=== PATIENT | male | born 1995 | race Asian ===

== ENCOUNTER 2016-12-08 00:51 | Emergency (ER) | payer MEDICAID ==
[2016-12-08 01:22] LABS: BASOPHIL % 0.4 % (0-2); PLATELET COUNT 257 x10^3mcL (130-400); RED CELL DISTRIBUTION WIDTH 13.6 % (11.5-14.5)
[2016-12-08 01:29] LABS: CALCIUM 8.4 mg/dL (8.5-10.1); CARBON DIOXIDE 29.3 mmol/L (21-32); CHLORIDE SERUM 108 mmol/L (98-107); CREATININE SERUM 0.8 mg/dL (0.7-1.3); GFR1 > 60 mL/min; GLUCOSE SERUM 95 mg/dL (74-106); POTASSIUM SERUM 4.1 mmol/L (3.5-5.1); SODIUM SERUM 145 mmol/L (136-145)
[2016-12-08 01:33] LABS: ALBUMIN 3.6 g/dL (3.4-5.0); ALKALINE PHOSPHATASE 110 U/L (46-116); ALT/SGPT 26 U/L (16-63); AMYLASE 78 U/L (25-115); AST/SGOT 18 U/L (15-37); BILIRUBIN TOTAL 0.48 mg/dL (0.20-1.00); LIPASE 109 IU/L (73-393)
[2016-12-08 02:45] VITALS: BP 143/64
== END 2016-12-08 02:45 | disposition home or self-care (01) ==
LOC: ED 00:51
PROVIDERS: Emergency Medicine
DX: R10.13 Epigastric pain (principal); R11.10 Vomiting, unspecified; J45.909 Unspecified asthma, uncomplicated

== ENCOUNTER 2017-03-19 04:10 | Emergency (ER) | payer MEDICAID ==
[2017-03-19 06:02] VITALS: BP 130/80
== END 2017-03-19 06:02 | disposition home or self-care (01) ==
LOC: ED 04:10
DX: L50.0 Allergic urticaria (principal); J45.909 Unspecified asthma, uncomplicated
CPT/HCPCS: J2930; Q0163

== ENCOUNTER 2018-01-18 11:31 | Emergency (ER) | payer MEDICAID ==
[~2018-01-18] VITALS: Ht 182.9 cm; Wt 133.3 kg
[2018-01-18 11:55] VITALS: BP 133/65; Ht 182.9 cm; Wt 133.3 kg
== END 2018-01-18 12:43 | disposition home or self-care (01) ==
LOC: ED 11:31
DX: J06.9 Acute upper respiratory infection, unspecified (principal); J45.909 Unspecified asthma, uncomplicated; I10 Essential (primary) hypertension